=== PATIENT | female | born 2000 | race Two or more races ===

== ENCOUNTER 2022-09-01 17:37 | Emergency (ER) | payer MEDICAID ==
[~2022-09-01] VITALS: Ht 162.6 cm; Wt 83.2 kg
[2022-09-01 19:59] LABS: Urine Blood 3+ /uL (Negative); Urine Specific Gravity 1.018 (1.001-1.035)
[2022-09-02 01:43] VITALS: BP 130/85
== END 2022-09-02 01:59 | disposition home or self-care (01) ==
LOC: ER 17:37
DX: Z32.02 Encounter for pregnancy test, result negative (principal); R10.2 Pelvic and perineal pain; F17.210 Nicotine dependence, cigarettes, uncomplicated
CPT/HCPCS: 36415; 81003; 84702